=== PATIENT | male | born 1970 | race Caucasian/White ===

== ENCOUNTER 2019-04-22 10:23 | Outpatient (CLI) | payer SELFPAY ==
--- NOTE | 2019-04-22 10:36 | XR_ITS ---
WS: [id number] PROCEDURE: XR chest 2V* [id number] CLINICAL INFORMATION: ASTHMATIC BRONCHITIS COMPARISON: None. FINDINGS: Heart: Normal cardiac silhouette. Lungs: Lungs are clear. No consolidation or pleural fluid. Bones: Postoperative changes lower cervical spine. XR/XR chest 2V* [id number] IMPRESSION: Normal chest
== END 2019-04-22 10:24 | disposition home or self-care (01) ==
LOC: WPI 10:33
PROVIDERS: PCP Nurse Practitioner Family; Visit Provider Nurse Practitioner Family
DX: J45.909 Unspecified asthma, uncomplicated (principal)
CPT/HCPCS: 71046